=== PATIENT | female | born 1980 | race Caucasian/White ===

== ENCOUNTER 2024-09-04 13:43 | Emergency (ER) | payer OTHER ==
[~2024-09-04] VITALS: Ht 165.1 cm; Wt 97.5 kg
[2024-09-04 13:47] VITALS: BP 113/80; PULSE 66; RESP 18; O2SAT 98
[2024-09-04] MEDS ORDERED: GABA300C PO (14:33)
[2024-09-04 14:41] VITALS: TEMP 98.6
== END 2024-09-04 14:48 | disposition home or self-care (01) ==
LOC: ER 13:44
DX: S16.1XXA Strain of muscle, fascia and tendon at neck level, initial encounter (principal); Z88.0 Allergy status to penicillin; X58.XXXA Exposure to other specified factors, initial encounter; Y93.89 Activity, other specified; Y92.89 Other specified places as the place of occurrence of the external cause; Y99.8 Other external cause status
CPT/HCPCS: 99283

== ENCOUNTER 2024-12-29 09:57 | Outpatient (CLI) | payer OTHER ==
[~2024-12-29 09:57] MED LIST: GABA300C PO
--- NOTE | 2024-12-29 13:00 | RADIOLOGY REPORT ---
EXAM: CT CT SINUS HISTORY: CHRONIC SINUSITIS COMPARISON: None TECHNIQUE: Noncontrast axial CT images of the paranasal sinuses were performed. Coronal and sagittal reformatted images were obtained. Radiation dose: CTDIvol 54.49 mGy, DLP 629.85 mGy*cm. This CT exam was performed using one or more of the following dose reduction techniques: Automated ex posure control, adjustment of the mA and/or kV according to patient size, or use of iterative reconst ruction technique. FINDINGS: The paranasal sinuses are clear. No facial bone fractures are identified. The nasal septum is minimally deviated to the right. There is paradoxical curvature of the bilateral middle turbinates . The OMCs are patent. No tapan bullosa or Luigi cells. The mastoid air cells and middle ear spaces are clear. IMPRESSION: The paranasal sinuses are clear.
== END 2024-12-29 23:59 | disposition home or self-care (01) ==
LOC: RAD 09:57
PROVIDERS: ATTEND Student in an Organized Health Care Education/Training Program
DX: J32.8 Other chronic sinusitis (principal)
CPT/HCPCS: 70486